=== PATIENT | male | born 1990 | race Caucasian/White ===

== ENCOUNTER → 2023-04-16 | Outpatient (CLI) | payer OTHER | LOC: M WUC 15:01 | PROVIDERS: ATTEND Physician Assistant | DX: S60.221A Contusion of right hand, initial encounter (principal); X58.XXXA Exposure to other specified factors, initial encounter; Y92.9 Unspecified place or not applicable ==

== ENCOUNTER 2025-04-12 18:15 | Emergency (ER) | payer OTHER ==
[~2025-04-12] VITALS: Ht 170.2 cm; Wt 101.4 kg
[2025-04-12] MEDS ORDERED: HYDR50TA70 PO (18:26)
[2025-04-12] MEDS ORDERED: FLUO-365 PO (18:26)
[2025-04-12] MEDS: LIDOCAINE 1% MDV 20 ML VIAL SC ONE (20:55)
[2025-04-12] MEDS: LIDOCAINE W/EPINEPHrine 1% 20 ML VIAL SC ONE (21:40)
[2025-04-12] MEDS ORDERED: LIDOCAINE W/EPINEPHrine 1% 20 ML VIAL As Ordered ONE (21:42)
[2025-04-12] MEDS: CEPHALEXIN 500 MG CAP PO ONE (22:00)
[2025-04-12 22:01] VITALS: BP 136/81; TEMP 98.6; O2SAT 96
[2025-04-12] MEDS ORDERED: CEPH500C PO (22:06)
== END 2025-04-12 22:18 | disposition home or self-care (01) ==
LOC: M ED 18:18
DX: S61.412A Laceration without foreign body of left hand, initial encounter (principal); W26.8XXA Contact with other sharp object(s), not elsewhere classified, initial encounter; F41.9 Anxiety disorder, unspecified; F32.A Depression, unspecified; Z79.2 Long term (current) use of antibiotics; Z79.899 Other long term (current) drug therapy; Y92.000 Kitchen of unspecified non-institutional (private) residence as the place of occurrence of the external cause; Y93.G1 Activity, food preparation and clean up; Y99.9 Unspecified external cause status